=== PATIENT | female | born 1960 ===

== ENCOUNTER 2017-06-12 11:05 | Inpatient (IN) | payer MEDICARE ==
[2017-06-12] MEDS ORDERED: Albuterol-Ipratrop 3 mg / 0.5 (3 ml) UD INH STA ×3 (11:44→15:52)
[2017-06-12 12:00] LABS: BASO # 0.1 K/uL (0.0-0.2); EOS # 0.2 K/uL (0.0-0.7); HEMOGLOBIN 13.9 g/dL (11.0-16.0); LYMPH # 1.8 K/uL (1.0-4.3); LYMPH % 15.2 % (20.0-40.0); MEAN CELL VOLUME 85.9 fL (81.0-99.0); MEAN CORPUSCULAR HEMOGLOBIN 29.5 pg (27.0-31.0); MEAN CORPUSCULAR HGB CONC 34.3 g/dL (33.0-37.0); MEAN PLATELET VOLUME 8.4 fL (7.2-11.7); MONO # 1.1 K/uL (0.0-0.8); MONO % 9.1 % (0.0-10.0); NEUT # 8.6 K/uL (1.8-7.0); NEUT % 72.7 % (50.0-75.0); NRBC % 0.1 % (0.0-2.0); RBC 4.72 Mil/uL (3.80-5.20); RED CELL DISTRIBUTION WIDTH 15.4 % (11.5-14.5); WHITE BLOOD COUNT 11.8 K/uL (4.8-10.8)
[2017-06-12 12:13] LABS: INR 1.1; PROTHROMBIN TIME 11.8 SECONDS (9.7-12.2)
[2017-06-12 12:15] LABS: ALB/GLOB RATIO 1.1 (1.0-2.1); ALBUMIN 4.1 g/dL (3.5-5.0); ALT/SGPT 18 U/L (9-52); AST/SGOT 22 U/L (14-36); BLOOD UREA NITROGEN 13 mg/dL (7-17); CALCIUM 10.1 mg/dl (8.6-10.4); GFR AFRICAN-AMERICAN > 60; GFR NON-AFRICAN AMERICAN > 60
--- NOTE | 2017-06-12 12:25 | RAD ---
Chest x-ray single frontal view History: Shortness of breath. Comparison: 12/19/2014 Findings: Mild venous congestion. Bilateral hilar prominence. Biapical pleural thickening. Right central venous catheter tip extending into the right SVC. Degenerative changes in the spine and shoulders. Impression: Mild venous congestion. Bilateral hilar prominence. Biapical pleural thickening. Right central venous catheter tip extending into the right SVC.
--- NOTE | 2017-06-12 12:45 | C.PDOC ---
History Of Present Illness 57 year old female, whose PMHx includes Asthma, presents to the ED for evaluation of chest pain, cough, and shortness of breath. Patient states she normally experiences chest pain with her asthma and states she recently ran out of her medication. Patient admits to history of smoking. she denies fever, chills, or previous history of intubations. Time Seen by Provider: 06/12/17 11:50 Chief Complaint (Nursing): Shortness Of Breath History Per: Patient History/Exam Limitations: no limitations Onset/Duration Of Symptoms: Hrs Current Symptoms Are (Timing): Still Present Quality: "Pain" Current Respiratory Medications: See Home Med List Associated Symptoms: Chest Pain. denies: Fever, Chills Additional History Per: Patient Past Medical History Reviewed: Historical Data, Nursing Documentation, Vital Signs Vital Signs: Last Vital Signs Temp 98.6 F 06/12/17 23:46 Pulse 102 H 06/12/17 23:46 Resp 20 06/12/17 23:46 BP 121/73 06/12/17 23:46 Pulse Ox 95 06/12/17 23:46 - Medical History PMH: Arthritis, Asthma, Back Problems, Diabetes, Gastritis, HTN, Hypercholesterolemia Surgical History: Coronary Stent Family History: States: Unknown Family Hx - Social History Hx Tobacco Use: No Hx Alcohol Use: No Hx Substance Use: No - Immunization History Hx Tetanus Toxoid Vaccination: No Hx Influenza Vaccination: No Hx Pneumococcal Vaccination: No Review Of Systems Constitutional: Negative for: Fever, Chills Cardiovascular: Positive for: Chest Pain Respiratory: Positive for: Cough, Shortness of Breath Physical Exam - Physical Exam Appears: Non-toxic, No Acute Distress Skin: Normal Color, Warm, Dry Head: Atraumatic, Normacephalic Eye(s): bilateral: Normal Inspection Oral Mucosa: Moist Neck: Supple Chest: Symmetrical, No Deformity, No Tenderness Cardiovascular: Rhythm Regular, No Murmur Respiratory: No Rales, No Rhonchi, Wheezing (expiratory ) Gastrointestinal/Abdominal: Normal Exam, Bowel Sounds, Soft Extremity: Normal ROM, Capillary Refill (less than 2 seconds ) Neurological/Psych: Oriented x3, Normal Speech, Normal Cognition ED Course And Treatment - Laboratory Results Result Diagrams: 06/13/17 06:15 06/13/17 06:15 ECG: Interpreted By Me, Viewed By Me ECG Rhythm: Sinus Tachycardia Interpretation Of ECG: Sinus Tachycardia at rate 126bpm. Normal intervals. Normal axis. No ST/T wave abnormalities. Rate From EC O2 Sat by Pulse Oximetry: 92 Medical Decision Making Medical Decision Making: Assessment: chest pain, cough, shortness of breath Plan: * bloodwork, * CXR * EKG * Albuterol INH * Solu-Medrol IVP * reassess and disposition Progress: Bloodwork, CXR, EKG ordered and reviewed. Albuterol INH and Solu-Medrol IV administered. Case discussed with Dr. Person. Patient will be admitted for pneumonia, asthma and hyperglycemia. Disposition Discussed With Dr.: Christiano Person Jr. Counseled Patient/Family Regarding: Studies Performed, Diagnosis - Disposition Disposition: HOSPITALIZED Disposition Time: 16:00 Condition: FAIR - Clinical Impression Clinical Impression: Pneumonia, Asthma - Scribe Statement The provider has reviewed the documentation as recorded by the Scribe (Meagan Nguyen) Provider Attestation: All medical record entries made by the Scribe were at my direction and personally dictated by me. I have reviewed the chart and agree that the record accurately reflects my personal performance of the history, physical exam, medical decision making, and the department course for this patient. I have also personally directed, reviewed, and agree with the discharge instructions and disposition.
[2017-06-12 13:11] LABS: B-TYPE NATRIURETIC PEPTIDE 79.4 pg/mL (0-900)
[2017-06-12] MEDS ORDERED: Iodixanol 320 MG/ML 100 ML BOTTLE IV ONE (13:57)
--- NOTE | 2017-06-12 15:43 | CT ---
PROCEDURE: CT Chest with contrast (Pulmonary Angiogram) HISTORY: sob COMPARISON: 12/19/2014 TECHNIQUE: Axial computed tomography images were obtained of the chest in the pulmonary arterial phase of enhancement. Coronal and sagittal reformatted images were created and reviewed. Intravenous contrast dose: 100 mL Visipaque 320 Radiation dose: Total exam DLP = 572.09 mGy-cm. This CT exam was performed using one or more of the following dose reduction techniques: Automated exposure control, adjustment of the mA and/or kV according to patient size, and/or use of iterative reconstruction technique. FINDINGS: PULMONARY ARTERIES: Unremarkable. No pulmonary embolism. AORTA: No acute findings. No thoracic aortic aneurysm. LUNGS: Small nonspecific opacity medial segment right middle lobe. Focal area of small airways disease, nonspecific, in the anterior segment right upper lobe. Small focal opacity in the right lower lobe. Moderate area of nonspecific opacity in the left lower lobe. Possible pneumonia. PLEURAL SPACES: Unremarkable. No effusion or pneuomothorax. HEART: Unremarkable. No cardiomegaly. No significant pericardial effusion. LYMPH NODES: No lymphadenopathy. BONES, CHEST WALL: Unremarkable. No fracture or destructive lesion OTHER FINDINGS: Unremarkable. IMPRESSION: No evidence of pulmonary embolism. Several small opacities with a more extensive opacity in the left lower lobe, possibly infectious. Focal small airways disease, nonspecific, in the anterior segment right upper lobe. Remainder the examination is unremarkable.
[2017-06-12] MEDS ORDERED: Azithromycin 500 MG in Sodium Chloride 0.9% 250 ML IVPB STA (15:52)
[2017-06-12] MEDS ORDERED: (Novolin R) Insulin Human Regular 100 units/ml vial IV ONE (15:59)
[2017-06-12] MEDS ORDERED: (Novolin R) Insulin Human Regular 100 units/ml vial ONE (16:17)
[2017-06-12] MEDS ORDERED: Albuterol-Ipratrop 3 mg / 0.5 (3 ml) UD ONE (16:23)
--- NOTE | 2017-06-12 19:21 | CP.PCM.HP ---
History of Present Illness - History of Present Illness History of Present Illness: HPI: Patient is a 57F with a PMH of Asthma, FL with 2 stents, DM Chronic back pain who comes to the ED after having worsening cough and SOB for 3 days. Patient states she woke up this morning and was very SOB but did not have any more medication left for albuterol nebulizer or her rescue inhaler. She initially did not want to come to the ED but was encouraged to come by her son. The sons girlfriend is the one who brought her to the ED. She denies any fevers or chills but does say that she has been having this cough and has not been able to bring anything up. She has had 4 previous admission for asthma exacerbation, 2 of them being ICU. One resulting in a pneumothorax and requiring chest tube. She also had a ICU admission for GI bleed secondary to gastric ulcer requiring blood transfusion. 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 PSH: tubal ligation, 3 c section FH: diabetes SH: Smokes 1 pack per day for 40+ years, no alcohol, no drugs All: No known allergies Present on Admission - Present on Admission Any Indicators Present on Admission: Yes History of DVT/PE: Yes Review of Systems - Review of Systems Review of Systems: per hpi Past Patient History - Infectious Disease Hx of Infectious Diseases: None - Past Social History Smoking Status: Heavy Smoker > 10 Cigarettes Daily - CARDIAC Hx Hypercholesterolemia: Yes Hx Hypertension: Yes - PULMONARY Hx Asthma: Yes - NEUROLOGICAL Other/Comment: peripheral neuropathy - HEENT Hx Blind: Yes (left eye) - ENDOCRINE/METABOLIC Hx Diabetes Mellitus Type 2: Yes - MUSCULOSKELETAL/RHEUMATOLOGICAL Hx Arthritis: Yes - GASTROINTESTINAL Hx Gastritis: Yes - PSYCHIATRIC Hx Substance Use: No - SURGICAL HISTORY Hx Coronary Stent: Yes - ANESTHESIA Hx Anesthesia: Yes Hx Anesthesia Reactions: No Meds Allergies/Adverse Reactions: Allergies Allergy/AdvReac Type Severity Reaction Status Date / Time No Known Allergies Allergy Verified 06/12/17 11:20 Physical Exam - Constitutional Appears: Well - Head Exam Head Exam: ATRAUMATIC, NORMAL INSPECTION, NORMOCEPHALIC - Eye Exam Eye Exam: EOMI, PERRL. absent: Normal appearance Pupil Exam: NORMAL ACCOMODATION, PERRL - ENT Exam ENT Exam: Mucous Membranes Moist, Normal Exam - Neck Exam Neck exam: Positive for: Normal Inspection - Respiratory Exam Respiratory Exam: Rales, Rhonchi, Wheezes (expiratory wheezing) - Cardiovascular Exam Cardiovascular Exam: REGULAR RHYTHM - GI/Abdominal Exam GI & Abdominal Exam: Normal Bowel Sounds, Soft. absent: Distended, Tenderness - Extremities Exam Extremities exam: Positive for: normal inspection - Back Exam Back exam: NORMAL INSPECTION - Neurological Exam Neurological exam: Alert, CN II-XII Intact, Normal Gait, Oriented x3, Reflexes Normal - Psychiatric Exam Psychiatric exam: Normal Affect, Normal Mood - Skin Skin Exam: Dry, Intact, Normal Color, Warm Results - Vital Signs Recent Vital Signs: Last Vital Signs Temp 98.4 F 06/12/17 17:30 Pulse 96 H 06/12/17 17:30 Resp 21 06/12/17 17:30 BP 125/69 06/12/17 17:30 Pulse Ox 95 06/12/17 17:30 - Labs Result Diagrams: 06/12/17 11:49 06/12/17 11:49 Labs: Laboratory Results - last 24 hr 06/12/17 06/12/17 06/12/17 11:49 11:49 11:49 WBC 11.8 H RBC 4.72 Hgb 13.9 Hct 40.5 MCV 85.9 MCH 29.5 MCHC 34.3 RDW 15.4 H Plt Count 274 MPV 8.4 Neut % (Auto) 72.7 Lymph % (Auto) 15.2 L [place] % (Auto) 9.1 Eos % (Auto) 2.0 Baso % (Auto) 1.0 Neut # (Auto) 8.6 H Lymph # (Auto) 1.8 [place] # (Auto) 1.1 H Eos # (Auto) 0.2 Baso # (Auto) 0.1 PT 11.8 INR 1.1 APTT 31 D-Dimer, Quantitative 301 H Sodium 137 Potassium 3.9 Chloride 102 Carbon Dioxide 23 Anion Gap 16 BUN 13 Creatinine 0.7 Est GFR ( Amer) > 60 Est GFR (Non-Af Amer) > 60 POC Glucose (mg/dL) Random Glucose 277 H Calcium 10.1 Total Bilirubin 0.6 AST 22 ALT 18 Alkaline Phosphatase 131 H Troponin I < 0.0120 NT-Pro-B Natriuret Pep 79.4 Total Protein 7.9 Albumin 4.1 Globulin 3.8 Albumin/Globulin Ratio 1.1 06/12/17 15:53 WBC RBC Hgb Hct MCV MCH MCHC RDW Plt Count MPV Neut % (Auto) Lymph % (Auto) [place] % (Auto) Eos % (Auto) Baso % (Auto) Neut # (Auto) Lymph # (Auto) [place] # (Auto) Eos # (Auto) Baso # (Auto) PT INR APTT D-Dimer, Quantitative Sodium Potassium Chloride Carbon Dioxide Anion Gap BUN Creatinine Est GFR ( Amer) Est GFR (Non-Af Amer) POC Glucose (mg/dL) 366 H Random Glucose Calcium Total Bilirubin AST ALT Alkaline Phosphatase Troponin I NT-Pro-B Natriuret Pep Total Protein Albumin Globulin Albumin/Globulin Ratio Assessment & Plan (1) Asthma exacerbation Assessment and Plan: Pulm (David) Duonebs Q4 Solumedrol 40 IV Q6H Status: Acute Priority: High (2) Pneumonia Assessment and Plan: Pulm (David) Azithro and Rocephin Robitussin with Codeine 10ml PO Q6 x3 doses f/u legionella, mycoplasma, procal Status: Acute Priority: High (3) Diabetes Assessment and Plan: CCD ISS High A1C Status: Chronic Priority: High (4) HTN (hypertension) Assessment and Plan: Lopressor 50 PO BID Lisinopril 5 PO QD Status: Chronic Priority: Medium (5) History of FL (myocardial infarction) Assessment and Plan: ASA 81 QD Lopressor 50 PO BID Crestor 20 PO HS Lisinopril 5mg PO QD Was previously on Plavix for one year and primary told to stop Status: Chronic Priority: High (6) Chronic back pain Assessment and Plan: Sees pain clinic, Restarted patient home meds: * Gabapentin 300 PO TID * Morphine ER 15 PO Q12 * Oxycodone 10 PO Q8H PRN Colace to prevent constipation Status: Chronic Priority: Low (7) Anxiety Assessment and Plan: Xanax 0.5 PO BID Status: Chronic Priority: Low (8) Prophylactic measure Assessment and Plan: SCD Lovenox 40 SC QD No GI PPX indicated at this time Status: Chronic Priority: Low
[2017-06-12] MEDS: guaiFENesin-Codeine 100-10mg/5ml Syrup (10ml) UD PO SCH (20:00)
[2017-06-12] MEDS: Albuterol-Ipratrop 3 mg / 0.5 (3 ml) UD INH SCH (20:30)
[2017-06-12] MEDS: oxyCODONE 10 mg Immediate Release Tab PO PRN (21:55)
[2017-06-12] MEDS: (Novolog) Insulin Aspart, Recombinant 100 u/ml 10 ml vial SC SCH (21:55)
[2017-06-12] MEDS: Morphine 15 mg SR Tab PO SCH (21:56)
[2017-06-13] MEDS: Albuterol-Ipratrop 3 mg / 0.5 (3 ml) UD INH SCH ×4 (00:25→13:40)
[2017-06-13] MEDS: guaiFENesin-Codeine 100-10mg/5ml Syrup (10ml) UD PO SCH (01:51)
[2017-06-13] MEDS: MethylPREDNISolone 40 mg Vial IVP SCH ×2 (05:19→17:21)
[2017-06-13] MEDS: oxyCODONE 10 mg Immediate Release Tab PO PRN (05:56)
[2017-06-13 06:22] LABS: BASO # 0.1 K/uL (0.0-0.2); BASO % 0.5 % (0.0-2.0); EOS % 0.1 % (0.0-4.0); LYMPH # 2.3 K/uL (1.0-4.3); MEAN CELL VOLUME 84.8 fL (81.0-99.0); MEAN CORPUSCULAR HEMOGLOBIN 29.2 pg (27.0-31.0); MEAN CORPUSCULAR HGB CONC 34.5 g/dL (33.0-37.0); MEAN PLATELET VOLUME 8.1 fL (7.2-11.7); MONO # 0.9 K/uL (0.0-0.8); MONO % 7.1 % (0.0-10.0); NEUT # 9.3 K/uL (1.8-7.0); NEUT % 74.3 % (50.0-75.0); RBC 4.44 Mil/uL (3.80-5.20); RED CELL DISTRIBUTION WIDTH 15.3 % (11.5-14.5); WHITE BLOOD COUNT 12.6 K/uL (4.8-10.8)
[2017-06-13 06:38] LABS: ALB/GLOB RATIO 1.1 (1.0-2.1); ALT/SGPT 12 U/L (9-52); AST/SGOT 17 U/L (14-36); BLOOD UREA NITROGEN 16 mg/dL (7-17); CALCIUM 10.4 mg/dl (8.6-10.4); GFR AFRICAN-AMERICAN > 60; GFR NON-AFRICAN AMERICAN > 60
[2017-06-13] MEDS: (Novolog) Insulin Aspart, Recombinant 100 u/ml 10 ml vial SC SCH ×3 (08:29→17:15)
[2017-06-13] MEDS: Morphine 15 mg SR Tab PO SCH (09:35)
[2017-06-13] MEDS ORDERED: GABAPENTIN 300 MG PO SCH (10:00)
[2017-06-13] MEDS ORDERED: Azithromycin 500 MG in Sodium Chloride 0.9% 250 ML IVPB SCH (10:00)
[2017-06-13] MEDS ORDERED: Enoxaparin 40 mg Syringe SC SCH (10:00)
[2017-06-13] MEDS ORDERED: oxyCODONE 10 mg Immediate Release Tab PO PRN (10:10)
[2017-06-13 10:35] LABS: MYCOPLASMA PNEUMONIAE IGM NEGATIVE (NEGATIVE)
--- NOTE | 2017-06-13 13:13 | CP.PCM.CON ---
History of Present Illness - History of Present Illness History of Present Illness: Reason for consult: Asthma exac, PNA HPI: 57 F with PMHx of asthma, disc herniations, DM, DE presented to the ED yesterday with non-productive cough and SOB x 3 days. She reports that she ran out of her nebulizer and inhaler medications which would normally provide relief. She denied fevers and chills. Today, the patient was seen and examined at bedside. She noted that her breathing has improved and that her cough is now productive and that she feels like she is starting to clear up some of the congestion. The patient believes that is well enough to go home. PMHx: Asthma, lumbago, [place] with multiple stents, DM PSH: tubal ligation and x 3 Allergies: NKDA SH: Smokes 1 PPD for over 40 years, denies alcohol, illicit drug use Home meds: tramadol 50mg PO PRN, simvastatin 40 mg PO QD, Zofran 1 ODT PO BID PRN, norvasc 10mg PO QD, reglan PO TID PRN, metformin 1000mg PO TIDAC, glimepiride 10mg PO QD, gabapentin 300mg PO TID, albuterol HFA 2 puffs, IH Q4 PRN Assessment and Plan: 1. Asthma exacerbation because of long history of smoking rule out COPD - Saturating 92-98% on 5L NC - duonebs - solu-medrol, consider switching to PO prednisone for discharg - pulmonary function test as out pt 2. Pneumonia - afebrile - CXR 06/12: no consolidation - Pro-calc pending - on empiric zithromax/rocephin - F/u CXR outpatient Past Patient History - Infectious Disease Hx of Infectious Diseases: None - Past Social History Smoking Status: Heavy Smoker > 10 Cigarettes Daily - CARDIAC Hx Hypercholesterolemia: Yes Hx Hypertension: Yes - PULMONARY Hx Asthma: Yes - NEUROLOGICAL Other/Comment: peripheral neuropathy - HEENT Hx Blind: Yes (left eye) - ENDOCRINE/METABOLIC Hx Diabetes Mellitus Type 2: Yes - HEMATOLOGICAL/ONCOLOGICAL Hx Anemia: Yes Hx Blood Transfusions: Yes - INTEGUMENTARY Hx Dermatological Problems: No - MUSCULOSKELETAL/RHEUMATOLOGICAL Hx Arthritis: Yes (LBP) - GASTROINTESTINAL Hx Gastritis: Yes - GENITOURINARY/GYNECOLOGICAL Hx Genitourinary Disorders: No - PSYCHIATRIC Hx Substance Use: No - SURGICAL HISTORY Hx Coronary Stent: Yes - ANESTHESIA Hx Anesthesia: Yes Hx Anesthesia Reactions: No Meds Allergies/Adverse Reactions: Allergies Allergy/AdvReac Type Severity Reaction Status Date / Time No Known Allergies Allergy Verified 06/12/17 11:20 - Medications Medications: Current Medications Albuterol/Ipratropium (Duoneb 3 Mg/0.5 Mg (3 Ml) Ud) 3 ml INH RQ4 [facility] Last Admin: 06/13/17 07:40 Dose: 3 ml Alprazolam (Xanax) 0.5 mg PO BID PRN PRN Reason: Anxiety Aspirin (Aspirin Chewable) 81 mg PO DAILY [facility] Last Admin: 06/13/17 09:34 Dose: 81 mg Docusate Sodium (Colace) 100 mg PO BID [facility] Last Admin: 06/13/17 09:36 Dose: Not Given Enoxaparin Sodium (Lovenox) 40 mg SC DAILY [facility] Last Admin: 06/13/17 09:33 Dose: 40 mg Gabapentin (Neurontin) 300 mg PO TID [facility] Last Admin: 06/13/17 09:35 Dose: 300 mg Azithromycin 500 mg/ Sodium (Chloride) 250 mls @ 250 mls/hr IVPB DAILY [facility] PRN Reason: Protocol Last Admin: 06/13/17 11:02 Dose: 250 mls/hr Ceftriaxone Sodium 1 gm/ (Sodium Chloride) 100 mls @ 100 mls/hr IVPB Q24H [facility] PRN Reason: Protocol Last Admin: 06/13/17 11:03 Dose: 100 mls/hr Insulin Aspart (Novolog) 0 unit SC ACHS [facility] PRN Reason: Protocol Last Admin: 06/13/17 12:15 Dose: 10 unit Lisinopril (Zestril) 5 mg PO DAILY [facility] Last Admin: 06/13/17 09:34 Dose: 5 mg Methylprednisolone (Solu-Medrol) 40 mg IVP Q12H [facility] Last Admin: 06/13/17 05:19 Dose: 40 mg Metoprolol Tartrate (Lopressor) 50 mg PO BID [facility] Last Admin: 06/13/17 09:35 Dose: 50 mg Morphine Sulfate (Morphine Extended Release Tab) 15 mg PO Q12 [facility] Last Admin: 06/13/17 09:35 Dose: 15 mg Oxycodone HCl (Oxycodone Immediate Release Tab) 20 mg PO Q8H PRN PRN Reason: Pain, severe (8-10) Pneumococcal Polyvalent Vaccine (Pneumovax 23 Vaccine) 0.5 ml IM .ONCE ONE Stop: 06/15/17 10:01 Rosuvastatin Calcium (Crestor) 20 mg PO HS [facility]IMMY Last Admin: 06/12/17 21:55 Dose: 20 mg Results - Vital Signs Recent Vital Signs: Last Vital Signs Temp 97.5 F L 06/13/17 07:24 Pulse 89 06/13/17 12:04 Resp 20 06/13/17 07:24 BP 124/71 06/13/17 12:04 Pulse Ox 94 L 06/13/17 12:04 - Labs Result Diagrams: 06/13/17 06:15 06/13/17 06:15 Labs: Laboratory Results - last 24 hr 06/12/17 06/12/17 06/13/17 15:53 21:07 06:15 WBC RBC Hgb Hct MCV MCH MCHC RDW Plt Count MPV Neut % (Auto) Lymph % (Auto) [place] % (Auto) Eos % (Auto) Baso % (Auto) Neut # (Auto) Lymph # (Auto) [place] # (Auto) Eos # (Auto) Baso # (Auto) Sodium Potassium Chloride Carbon Dioxide Anion Gap BUN Creatinine Est GFR ( Amer) Est GFR (Non-Af Amer) POC Glucose (mg/dL) 366 H 430 H* Random Glucose Hemoglobin A1c Calcium Phosphorus Magnesium Total Bilirubin AST ALT Alkaline Phosphatase Total Protein Albumin Globulin Albumin/Globulin Ratio Procalcitonin < 0.05 L Influenza Typ A,B (EIA) Ur L.pneumophila Ag Mycoplasma pneumon IgM Negative 06/13/17 06/13/17 06/13/17 06:15 06:15 06:15 WBC 12.6 H RBC 4.44 Hgb 13.0 Hct 37.6 MCV 84.8 MCH 29.2 MCHC 34.5 RDW 15.3 H Plt Count 282 MPV 8.1 Neut % (Auto) 74.3 Lymph % (Auto) 18.0 L [place] % (Auto) 7.1 Eos % (Auto) 0.1 Baso % (Auto) 0.5 Neut # (Auto) 9.3 H Lymph # (Auto) 2.3 [place] # (Auto) 0.9 H Eos # (Auto) 0.0 Baso # (Auto) 0.1 Sodium 139 Potassium 4.2 Chloride 103 Carbon Dioxide 24 Anion Gap 16 BUN 16 Creatinine 0.7 Est GFR ( Amer) > 60 Est GFR (Non-Af Amer) > 60 POC Glucose (mg/dL) Random Glucose 295 H Hemoglobin A1c 8.9 H Calcium 10.4 Phosphorus 2.6 Magnesium 2.0 Total Bilirubin 0.4 AST 17 ALT 12 Alkaline Phosphatase 110 Total Protein 7.7 Albumin 4.0 Globulin 3.7 Albumin/Globulin Ratio 1.1 Procalcitonin Influenza Typ A,B (EIA) Ur L.pneumophila Ag Mycoplasma pneumon IgM 06/13/17 06/13/17 06/13/17 06:21 06:23 07:20 WBC RBC Hgb Hct MCV MCH MCHC RDW Plt Count MPV Neut % (Auto) Lymph % (Auto) [place] % (Auto) Eos % (Auto) Baso % (Auto) Neut # (Auto) Lymph # (Auto) [place] # (Auto) Eos # (Auto) Baso # (Auto) Sodium Potassium Chloride Carbon Dioxide Anion Gap BUN Creatinine Est GFR ( Amer) Est GFR (Non-Af Amer) POC Glucose (mg/dL) 254 H Random Glucose Hemoglobin A1c Calcium Phosphorus Magnesium Total Bilirubin AST ALT Alkaline Phosphatase Total Protein Albumin Globulin Albumin/Globulin Ratio Procalcitonin Influenza Typ A,B (EIA) Negative for flu a/b Ur L.pneumophila Ag Negative Mycoplasma pneumon IgM 06/13/17 11:13 WBC RBC Hgb Hct MCV MCH MCHC RDW Plt Count MPV Neut % (Auto) Lymph % (Auto) [place] % (Auto) Eos % (Auto) Baso % (Auto) Neut # (Auto) Lymph # (Auto) [place] # (Auto) Eos # (Auto) Baso # (Auto) Sodium Potassium Chloride Carbon Dioxide Anion Gap BUN Creatinine Est GFR ( Amer) Est GFR (Non-Af Amer) POC Glucose (mg/dL) 390 H Random Glucose Hemoglobin A1c Calcium Phosphorus Magnesium Total Bilirubin AST ALT Alkaline Phosphatase Total Protein Albumin Globulin Albumin/Globulin Ratio Procalcitonin Influenza Typ A,B (EIA) Ur L.pneumophila Ag Mycoplasma pneumon IgM
[2017-06-13 17:06] VITALS: BP 106/66; PULSE 81; RESP 19; TEMP 98; O2SAT 93
--- NOTE | 2017-06-13 18:56 | CP.PCM.DIS ---
Provider - Provider Date of Admission: 06/12/17 15:57 Attending physician: Christiano Person Jr, MD Consults: Pulm: David Time Spent in preparation of Discharge (in minutes): 45 Diagnosis - Discharge Diagnosis (1) Asthma exacerbation Status: Acute Priority: High (2) Pneumonia Status: Acute Priority: High (3) Diabetes Status: Chronic Priority: High (4) HTN (hypertension) Status: Chronic Priority: Medium (5) History of [place] (myocardial infarction) Status: Chronic Priority: High (6) Chronic back pain Status: Chronic Priority: Low (7) Anxiety Status: Chronic Priority: Low (8) Prophylactic measure Status: Chronic Priority: Low Hospital Course - Lab Results Lab Results: Most Recent Lab Values WBC 12.6 K/uL (4.8-10.8) H 06/13/17 06:15 RBC 4.44 Mil/uL (3.80-5.20) 06/13/17 06:15 Hgb 13.0 g/dL (11.0-16.0) 06/13/17 06:15 Hct 37.6 % (34.0-47.0) 06/13/17 06:15 MCV 84.8 fL (81.0-99.0) 06/13/17 06:15 MCH 29.2 pg (27.0-31.0) 06/13/17 06:15 MCHC 34.5 g/dL (33.0-37.0) 06/13/17 06:15 RDW 15.3 % (11.5-14.5) H 06/13/17 06:15 Plt Count 282 K/uL (130-400) 06/13/17 06:15 MPV 8.1 fL (7.2-11.7) 06/13/17 06:15 Neut % (Auto) 74.3 % (50.0-75.0) 06/13/17 06:15 Lymph % (Auto) 18.0 % (20.0-40.0) L 06/13/17 06:15 Major % (Auto) 7.1 % (0.0-10.0) 06/13/17 06:15 Eos % (Auto) 0.1 % (0.0-4.0) 06/13/17 06:15 Baso % (Auto) 0.5 % (0.0-2.0) 06/13/17 06:15 Neut # (Auto) 9.3 K/uL (1.8-7.0) H 06/13/17 06:15 Lymph # (Auto) 2.3 K/uL (1.0-4.3) 06/13/17 06:15 Major # (Auto) 0.9 K/uL (0.0-0.8) H 06/13/17 06:15 Eos # (Auto) 0.0 K/uL (0.0-0.7) 06/13/17 06:15 Baso # (Auto) 0.1 K/uL (0.0-0.2) 06/13/17 06:15 PT 11.8 SECONDS (9.7-12.2) 06/12/17 11:49 INR 1.1 06/12/17 11:49 APTT 31 SECONDS (21-34) 06/12/17 11:49 D-Dimer, Quantitative 301 ng/mlDDU (0-243) H 06/12/17 11:49 Sodium 139 mmol/L (132-148) 06/13/17 06:15 Potassium 4.2 mmol/L (3.6-5.2) 06/13/17 06:15 Chloride 103 mmol/L (98-107) 06/13/17 06:15 Carbon Dioxide 24 mmol/L (22-30) 06/13/17 06:15 Anion Gap 16 (10-20) 06/13/17 06:15 BUN 16 mg/dL (7-17) 06/13/17 06:15 Creatinine 0.7 mg/dL (0.7-1.2) 06/13/17 06:15 Est GFR ( Amer) > 60 06/13/17 06:15 Est GFR (Non-Af Amer) > 60 06/13/17 06:15 POC Glucose (mg/dL) 317 mg/dL (65-110) H 06/13/17 16:00 Random Glucose 295 mg/dL (65-105) H 06/13/17 06:15 Hemoglobin A1c 8.9 % (4.2-6.5) H 06/13/17 06:15 Calcium 10.4 mg/dl (8.6-10.4) 06/13/17 06:15 Phosphorus 2.6 mg/dL (2.5-4.5) 06/13/17 06:15 Magnesium 2.0 mg/dL (1.6-2.3) 06/13/17 06:15 Total Bilirubin 0.4 mg/dL (0.2-1.3) 06/13/17 06:15 AST 17 U/L (14-36) 06/13/17 06:15 ALT 12 U/L (9-52) 06/13/17 06:15 Alkaline Phosphatase 110 U/L (38-126) 06/13/17 06:15 Troponin I < 0.0120 ng/mL (0.00-0.120) 06/12/17 11:49 NT-Pro-B Natriuret Pep 79.4 pg/mL (0-900) 06/12/17 11:49 Total Protein 7.7 g/dL (6.3-8.3) 06/13/17 06:15 Albumin 4.0 g/dL (3.5-5.0) 06/13/17 06:15 Globulin 3.7 gm/dL (2.2-3.9) 06/13/17 06:15 Albumin/Globulin Ratio 1.1 (1.0-2.1) 06/13/17 06:15 Procalcitonin < 0.05 NG/ML (0.19-0.49) L 06/13/17 06:15 Influenza Typ A,B (EIA) Negative for flu a/b (NEGATIVE) 06/13/17 06:23 Ur L.pneumophila Ag Negative (NEGATIVE) 06/13/17 06:21 Mycoplasma pneumon IgM Negative (NEGATIVE) 06/13/17 06:15 - Hospital Course Hospital Course: Patient is a 57F with a PMH of Asthma, [place] with 2 stents, DM Chronic back pain who comes to the ED after having worsening cough and SOB for 3 days. Patient states she woke up this morning and was very SOB but did not have any more medication left for albuterol nebulizer or her rescue inhaler. She initially did not want to come to the ED but was encouraged to come by her son. The sons girlfriend is the one who brought her to the ED. She denies any fevers or chills but does say that she has been having this cough and has not been able to bring anything up. She has had 4 previous admission for asthma exacerbation, 2 of them being ICU. One resulting in a pneumothorax and requiring chest tube. She also had a ICU admission for GI bleed secondary to gastric ulcer requiring blood transfusion. Patient was treated with IV steroids and nebulizer treatments. Wheezing resolved and she was breathing much better the next day. Added inhaled ICS at discharge. Discharge Exam - Head Exam Head Exam: ATRAUMATIC, NORMAL INSPECTION, NORMOCEPHALIC - Eye Exam Eye Exam: EOMI, Normal appearance, PERRL Pupil Exam: NORMAL ACCOMODATION, PERRL - Respiratory Exam Respiratory Exam: Clear to PA & Lateral, NORMAL BREATHING PATTERN, UNREMARKABLE - Cardiovascular Exam Cardiovascular Exam: REGULAR RHYTHM - GI/Abdominal Exam GI & Abdominal Exam: Normal Bowel Sounds, Soft. absent: Distended, Tenderness - Neurological Exam Neurological exam: Alert, CN II-XII Intact, Normal Gait, Oriented x3, Reflexes Normal - Psychiatric Exam Psychiatric exam: Normal Affect, Normal Mood - Skin Skin Exam: Dry, Intact, Normal Color, Warm Discharge Plan - Discharge Medications Prescriptions: Aspirin [Aspirin Chewable] 81 mg PO DAILY #30 chew Fluticasone/Salmeterol 250/50 [Advair Diskus 250/50] 1 puff INH RQ12 #30 puff Lisinopril [Zestril] 5 mg PO DAILY #30 tab Metoprolol Tartrate [Lopressor] 50 mg PO BID #60 tab - Follow Up Plan Condition: FAIR Disposition: HOME/ ROUTINE Instructions: Asthma, Adult (DC), Pneumonia, Adult (DC) Additional Instructions: Please follow up with your regular doctor in 7-10 days. If you would like to follow up with Dr. Person in his office you can. I have attached his office informatuion. Please let your doctor review the list of medications i have discharged you on. Please come back to the ED if symptoms return Referrals: Christiano Person Jr., MD [Medical Doctor] -
[2017-06-13] MEDS ORDERED: Pneumococcal 23-Valent Vaccine IM ONE (19:00)
[2017-06-13] MEDS ORDERED: Fluticasone-Salmeterol 250-50mcg Diskus INH SCH (20:00)
--- NOTE | 2017-06-13 21:56 | CARD ---
APPROVED REPORT EKG Measurement Heart [id number] <Conclusion> Sinus tachycardia Biatrial enlargement Abnormal ECG
[2017-06-15] MEDS ORDERED: Pneumococcal 23-Valent Vaccine IM ONE (10:00)
== END 2017-06-13 20:00 | disposition home or self-care (01) | DRG 194 ==
LOC: C.ER 11:05 → C.9E 15:57 → C.3T 16:43
PROVIDERS: ADMIT Internal Medicine; ATTEND Internal Medicine
DX: J18.9 Pneumonia, unspecified organism (principal); J45.901 Unspecified asthma with (acute) exacerbation; E11.9 Type 2 diabetes mellitus without complications; E78.00 Pure hypercholesterolemia, unspecified; F17.210 Nicotine dependence, cigarettes, uncomplicated; F41.9 Anxiety disorder, unspecified; G89.29 Other chronic pain; M54.9 Dorsalgia, unspecified; H54.62 Unqualified visual loss, left eye, normal vision right eye; I10 Essential (primary) hypertension; I25.2 Old myocardial infarction; Z95.5 Presence of coronary angioplasty implant and graft; Z79.4 Long term (current) use of insulin